=== PATIENT | male | born 1970 | race Caucasian/White ===

== ENCOUNTER → 2016-10-16 | Outpatient (CLI) | payer OTHER ==
[~2016-10-16] MED LIST: AMARYL4 MG PO; ASPIR 8181 M1 PO; CLEOCIN HCL150 MG PO; GLYBURIDE 5 MG T5 M1 PO; LIPITOR 20 MG T20 M1 PO; LORTAB 5-325 M1 EACH PO; METFORMIN HCL500 MG PO; VASOTEC 2.5MG2.5 M1 PO
== END ==
LOC: HYPER 07:48
DX: T81.89XD Other complications of procedures, not elsewhere classified, subsequent encounter (principal); E11.9 Type 2 diabetes mellitus without complications; I10 Essential (primary) hypertension; E78.5 Hyperlipidemia, unspecified; F17.210 Nicotine dependence, cigarettes, uncomplicated; Y83.8 Other surgical procedures as the cause of abnormal reaction of the patient, or of later complication, without mention of misadventure at the time of the procedure